=== PATIENT | male | born 1950 | race Caucasian/White ===

== ENCOUNTER 2018-07-28 17:42 | Emergency (ER) | payer MEDICARE, MEDICAID ==
[~2018-07-28] VITALS: Ht 167.6 cm; Wt 72.6 kg
[~2018-07-28 17:42] MED LIST: ASPIR 8181 MG ORAL; ATORVASTATIN CA20 MG ORAL; BISACODYL10 M1 RC; CALCIUM ACETAT667 M1 PO; CLONIDINE 0.2M0.2 MG PO; DOCUSATE SODIU100 MG ORAL; FAMOTIDINE20 MG ORAL; FERROUS SULFAT325 MG ORAL; FLOMAX0.4 MG ORAL; GLUCAGON EMERGEN1 MG IJ; HYDRALAZINE HCL25 M1 ORAL; LANTUS SOL100 UNIT/1 SUBQ; LOSARTAN POTASS50 MG ORAL; METOPROLOL TART50 MG ORAL; MOM30 ML ORAL; MULTIVITAMINS1 EA14 PO; NEPHROVITE1 TAB ORAL; NIFEDIPINE ER30 M2 ORAL; NIFEDIPINE ER60 M3 ORAL; NITROGLYCERIN0.4 MG SL; NORCO 5-325 TA1 EAC1 ORAL; NOVOLIN R100 UNIT/1 SUBQ; PROSCAR5 MG ORAL; TYLENOL650 MG/20. ORAL; ZOLPIDEM TARTRA10 MG ORAL
[2018-07-28 17:45] VITALS: BP 103/54
[2018-07-28] MEDS ORDERED: Norco 5mg/325mg tab ORAL ONE (18:15)
[2018-07-28] MEDS ORDERED: AMLODIPINE BESY10 MG ORAL (19:22)
[2018-07-28] MEDS ORDERED: HYDRALAZINE HC100 MG ORAL (19:22)
[2018-07-28] MEDS ORDERED: DEPAKOTE250 MG PO (19:22)
[2018-07-28] MEDS ORDERED: METRONIDAZOLE500 MG ORAL (19:22)
[2018-07-28] MEDS ORDERED: CATAPRES0.1 MG ORAL (19:22)
--- NOTE | 2018-07-28 20:42 | Emergency Room Report ---
History of Present Illness General Chief Complaint: Multiple Trauma/Fall Source: Patient, Medical Record Present Illness HPI 68-year-old male presents to the emergency department for evaluation status post mechanical fall which occurred yesterday. Patient is sent from a longterm. It was noted in this record that he is normally ambulatory however after recent fall he has not been able tobeen complaining of pain in the left hip. Also reports neck pain. Patient has 4/10 in severity pain in the left hip. Denies N/V. denies open wounds. HPI and Ros are limited due to pt. difficulty with hearing and conversational abilities. Allergies: Coded Allergies: No Known Allergies (Unverified , 06/27/14) Patient History Past Medical History: see triage record Past Surgical History: none Pertinent Family History: none Reviewed Nursing Documentation: PMH: Agreed; PSxH: Agreed Nursing Documentation-PMH Past Medical History: No History, Except For Hx Cardiac Problems: Yes Hx Hypertension: Yes Hx COPD: Yes Hx Diabetes: Yes Hx Cancer: No Hx Gastrointestinal Problems: No Hx Neurological Problems: No Review of Systems All Other Systems: negative except mentioned in HPI Physical Exam Vital Signs Date Time Temp Pulse Resp B/P (MAP) Pulse Ox O2 Delivery O2 Flow Rate FiO2 07/28/18 17:35 97.4 70 16 103/54 97 Room Air 97.3 Sp02 EP Interpretation: reviewed, normal General Appearance: no apparent distress - Pt. appears for the most part comfortable NAD, with c-collar on. , alert, GCS 15, non-toxic Head: normocephalic, atraumatic Eyes: bilateral eye normal inspection, bilateral eye PERRL ENT: hearing grossly normal, normal voice Neck: full range of motion, tender lateral - bilateral . , other Respiratory: chest non-tender, lungs clear, normal breath sounds, no wheezing, speaking full sentences Cardiovascular #1: regular rate, rhythm Gastrointestinal: normal bowel sounds, non tender, soft Rectal: deferred Genitourinary: normal inspection Musculoskeletal: back normal, normal range of motion, tender - Left HIP Neurologic: alert, oriented x3, responsive, motor strength/tone normal, sensory intact, speech normal, grossly normal Psychiatric: judgement/insight normal Skin: normal color, no rash, warm/dry, well hydrated Medical Decision Making PA Attestation Dr. Goodson is my supervising Physician whom patient management has been discussed with. Diagnostic Impression: Primary Impression: Contusion of hip and thigh Qualified Codes: S70.02XA - Contusion of left hip, initial encounter; S70.12XA - Contusion of left thigh, initial encounter Additional Impressions: Neck pain Fall Qualified Codes: W19.XXXA - Unspecified fall, initial encounter ER Course 68-year-old male presents to the emergency department for evaluation status post mechanical fall which occurred yesterday. Patient is sent from a longterm. It was noted in this record that he is normally ambulatory however after recent fall he has not been able to be complaining of pain in the left hip. Also reports neck pain. Patient has 4/10 in severity pain in the left hip. Denies N/V. denies open wounds. HPI and Ros are limited due to pt. difficulty with hearing and conversational abilities. Ddx considered but are not limited to Fracture, dislocation, contusion, Sprain/ Strain/Spasm. Vital signs: are WNL, pt. is afebrile H&PE are most consistent with musculoskeletal injury will perform imaging to r/ o fractures/dislocations. ORDERS: CT C-spin and Left hip no contrast. ED INTERVENTIONS: - [place] PO -Pt. cleared from C-collar following receiving official radiology report. DISCHARGE: At this time pt. is stable for d/c back to [facility] via ambulance. Will provide printed patient care instructions, and any necessary prescriptions. Care plan and follow up instructions have been discussed with the patient prior to discharge. CT/MRI/US Diagnostic Results CT/MRI/US Diagnostic Results #1: Imaging Test Ordered: CT C-spine no contrast Impression no acute fractures or dislocations.Per official radiology report- Please see report for specific details. CT/MRI/US Diagnostic Results #2: Imaging Test Ordered: CT Left hip no contrast. Impression no acute fractures or dislocations.Per official radiology report- Please see report for specific details. Last Vital Signs Date Time Temp Pulse Resp B/P (MAP) Pulse Ox O2 Delivery O2 Flow Rate FiO2 07/28/18 17:45 97.3 70 16 103/54 97 Room Air 97.3 Disposition: HOME, SELF-CARE Condition: Stable Scripts Acetaminophen* (TYLENOL EXTRA STRENGTH*) 500 Mg Tablet 500 MG ORAL Q6H, #20 TAB 0 Refills Prov: Sophie Caldwell 07/28/18 Patient Instructions: Contusion, [id number] Additional Instructions: Take medications as directed. Follow up with a Primary Care Provider in 3-5 days, even if your symptoms have resolved. --Please review list of primary care clinics, if you do not already have a primary care provider Return sooner to ED if new symptoms occur, or current symptoms become worse. - Please note that this Emergency Department Report was dictated using [employer] policy technology software, occasionally this can lead to erroneous entry secondary to interpretation by the dictation equipment. Sophie Caldwell Jul 28, 2018 20:42
[2018-07-28] MEDS ORDERED: TYLENOL EXTRA500 MG ORAL (21:38)
[2018-07-28 21:48] VITALS: BP 144/67
[2018-07-28 21:50] VITALS: BP 144/67
--- NOTE | 2018-07-29 09:12 | Diagnostic Imaging Report ---
Indication: Neck pain. Technique: Continuous helical imaging of the cervical spine was obtained transaxially from the skull base to the upper thoracic spine. 2-D coronal and sagittal reformatted images were obtained. Automatic Exposure Control was utilized. Total Dose length Product (DLP): 335.[address] Dose Index Volume (CTDIvol): 15.65 mGy Comparison: None Findings: There is no evidence of an acute fracture or malalignment. Atlantoaxial alignment appears normal. Height and configuration of the vertebral bodies and intervertebral discs are within normal limits. Uncovertebral joints and facets are unremarkable. There is no soft tissue swelling. Impression: Negative cervical spine CT [facility] has communicated the preliminary results to the Emergency Department. Their findings are largely concordant with this report. The CT scanner at [facility] is accredited by the [employer] and the scans are performed using dose optimization techniques as appropriate to a performed exam including Automatic Exposure control.
--- NOTE | 2018-07-29 09:21 | Diagnostic Imaging Report ---
Indication: Hip pain. Left hip injury Technique: continuous helical imaging in the transaxial plane was performed from the iliac crests to the pubic symphysis with attention to the left hip. Coronal 2-D reformatted images were also generated. Study obtained in a [employer] [address] total DLP: 280.05 mGycm CTD/vol: 9.93 mGy Comparison: None Findings: There is no evidence of an acute fracture or significant malalignment identified on this examination. The bladder is abnormal with the multiple diverticula wall thickening findings consistent chronic cystitis. Appendix incidentally noted appears normal. Iliac artery calcifications are mild in degree demonstrated. Small bilateral inguinal hernias containing fat demonstrated. IMPRESSION: No acute fracture of the left hip demonstrated. Other incidental findings as above. [facility] has communicated the preliminary results to the Emergency Department. Their findings are largely concordant with this report. The CT scanner at [facility] is accredited by the [employer] and the scans are performed using dose optimization techniques as appropriate to a performed exam including Automatic Exposure control.
== END 2018-07-28 21:51 ==
LOC: EDBD 17:42 → EMR 21:25
DX: S70.02XA Contusion of left hip, initial encounter (principal); S70.12XA Contusion of left thigh, initial encounter; M54.2 Cervicalgia; M25.529 Pain in unspecified elbow; J44.9 Chronic obstructive pulmonary disease, unspecified; I10 Essential (primary) hypertension; E11.9 Type 2 diabetes mellitus without complications; Z86.79 Personal history of other diseases of the circulatory system; W19.XXXA Unspecified fall, initial encounter; Y92.129 Unspecified place in nursing home as the place of occurrence of the external cause
CPT/HCPCS: 72125; 99284